=== PATIENT | male | born 1950 | race Caucasian/White ===

== ENCOUNTER 2017-06-03 08:06 | Inpatient (IN) ==
[~2017-06-03 08:06] MED LIST: *HR* Etomidate 20 MG/10 ML AMPUL IVP ONE; *HR* FentaNYL (PF) 100 MCG/2 ML VIAL ONE; *HR* LORazepam 2 MG/ML VIAL IVP ONE; *HR* Midazolam HCl 2 MG/2 ML VIAL ONE; *HR* Propofol 200 MG/20 ML VIAL IVP ONE; *HR* Remifentanil 2 MG VIAL IVP ONE; *HR* Rocuronium Bromide 50 MG/5 ML VIAL ONE; *HR* Succinylcholine 200 MG/10 ML VIAL IVP ONE; Lidocaine -MPF 2% 2 ML VIAL ONE
[2017-06-03] MEDS ORDERED: *HR* Etomidate 40 MG/20 ML VIAL IVP ONE (08:14)
[2017-06-03] MEDS ORDERED: Lidocaine -MPF 4% 5 ML AMPUL ONE (08:16)
[2017-06-03] MEDS ORDERED: *HR* Succinylcholine 200 MG/10 ML VIAL IVP ONE (08:16)
[2017-06-03] MEDS ORDERED: Nitroglycerin 0 MG/0 ML INFUS..BTL IVC ONE (08:26)
[2017-06-03] MEDS ORDERED: Heparin 1,000 UNITS/500 mL NS 1,500 ML ONE (08:33)
[2017-06-03] MEDS ORDERED: Lidocaine -MPF 2% 2 ML VIAL ONE ×2 (08:33→08:56)
[2017-06-03] MEDS ORDERED: *HR* Phenylephrine 10 MG/ML VIAL ONE ×2 (08:33→15:46)
[2017-06-03] MEDS ORDERED: Famotidine 20 MG/2 ML VIAL IVP ONE (08:36)
[2017-06-03] MEDS ORDERED: Acetaminophen IV 1,000 MG/100 ML INFUS..BTL IVPB ONE (08:36)
--- NOTE | 2017-06-03 08:40 | Anesthesia Evaluation PreOp ---
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 Other Medical History: Denies Any Significant HX Alcohol Use: none Drug use: none Medications and Allergies Aspirin [Ecotrin] 325 mg PO DAILY 05/30/17 [History] Isosorbide MONOnitrate (24 HR) [Imdur] 60 mg PO DAILY 05/30/17 [History] Lisinopril [Zestril] 20 mg PO DAILY 05/30/17 [History] Nitroglycerin 0.4 mg SL Q5MIN 05/30/17 [History] Pravastatin Sodium [Pravachol] 80 mg PO DAILY 05/30/17 [History] Propranolol LA (24 HR) [Inderal LA] 80 mg PO DAILY 05/30/17 [History] 3 Allergy/AdvReac Type Severity Reaction Status Date / Time No Known Allergies Allergy Unverified 05/15/17 10:51 - Meds/Allergy Pre-op Review Medications Reviewed: Yes Allergies Reviewed: Yes Beta Blockers on Current Med List: Yes Anesthesia Results - Labs Laboratory Tests 05/29/17 05/29/17 05/29/17 07:27 07:27 07:27 Hgb 14.1 Hct 42.6 Plt Count 223 PT INR APTT 28.6 Sodium 139 Potassium 4.3 BUN 18 Creatinine 1.20 05/30/17 06:48 Hgb Hct Plt Count PT 11.7 INR 1.1 APTT Sodium Potassium BUN Creatinine - Imaging EKG: report reviewed (SR) Additional studies: EF 38%, non diagnostic stress test Anesthesia Exam O2 Sat Height 1.85 m Height 1.85 m Weight 68.039 kg Weight 68.039 kg O2 Sat by Pulse Oximetry 99 Vital Signs Temp Pulse Resp BP Pulse Ox 97.8 F 78 18 124/85 99 06/03/17 08:22 06/03/17 08:22 06/03/17 08:22 06/03/17 08:22 06/03/17 08:22 Height: 6'1 Weight: 150 lbs NPO (# of Hours): MN Pain Scale: 0 - HEENT Pupil (Motor): Pupils equal, EOMI Mallampati: III Teeth: Edentulous Oral Opening: Less than or equal to 3 - 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
[2017-06-03] MEDS ORDERED: Lidocaine -MPF 1% 2 ML VIAL ID ONE (08:41)
[2017-06-03] MEDS ORDERED: Albuterol 2.5 MG/3 ML NEBULIZER IH ONE (08:41)
[2017-06-03] MEDS ORDERED: CeFAZolin Syr 2,000MG/20 ML 2,000 MG/20 ML SYRINGE IVPB ONE (08:41)
[2017-06-03] MEDS ORDERED: Heparin 1,000 UNITS/500 mL NS 500 ML ONE (08:42)
[2017-06-03] MEDS ORDERED: Protamine Sulfate 50 MG/5 ML VIAL IVP ONE (08:43)
--- NOTE | 2017-06-03 08:47 | History & Physical Report ---
Date of Encounter: 06/03/17 Time of Encounter: 08:46 24 Hour HP Update - Instructions Instructions: If the History and Physical is less than 30 days old and was completed prior to A.M. admission and or procedure and has NOT been updated on calendar day of procedure please complete this update prior to performing procedure. - Update Patient reports changes in Medical Condition: No Changes in examination, assessment, or condition: No Changes in Medication: No Preop tests/diagnostics Reviewed: Yes Surgery Remains Indicated: Yes Consent for Planned Operative Procedure(s) Verified: Yes - Pre-Operative Checklist Preoperative Checklist Indicated: Yes Prophylactic Antibiotic Ordered: Yes Home Medications Include Beta Fariba: Yes Beta Fariba Taken Today (Day of Surgery): Yes Beta Fariba Taken Yesterday (Day Prior to Surgery): Yes Is VTE Prophylaxis Indicated?: Yes
[2017-06-03] MEDS: Ringers Solution, Lactated 1,000 ML IVC SCH ×5 (09:19→14:41)
[2017-06-03] MEDS ORDERED: EPHEDrine 50 MG/ML VIAL ONE (11:03)
[2017-06-03] MEDS ORDERED: *HR* FentaNYL (PF) 100 MCG/2 ML VIAL ONE (11:14)
[2017-06-03] MEDS ORDERED: Dexamethasone 4 MG/ML VIAL ONE (11:40)
[2017-06-03 11:59] LABS: ABG Base Excess -2 mEq/L (-2 to 3); ABG Chloride 105 mEq/L (98-107); ABG Glucose 105 mg/dL (60-95); ABG HCO3 25 mEq/L (21-27); ABG Ionized Calcium 1.19 mmol/L (1.15-1.35); ABG Oxygen Saturation 100 % (95-98); ABG PCO2 49 mmHg (35-45); ABG PH 7.32 pH Units (7.32-7.45); ABG PO2 265 mmHg (85-104); ABG TCO2 27 mEq/L (20-26)
[2017-06-03] MEDS ORDERED: Mannitol 25% vial 12.5 GM/50 ML VIAL ONE (13:02)
[2017-06-03] MEDS ORDERED: *HR* Heparin 5,000 UNIT/ML VIAL ONE (13:03)
[2017-06-03 13:59] LABS: ABG Base Excess -6 mEq/L (-2 to 3); ABG Chloride 105 mEq/L (98-107); ABG Glucose 120 mg/dL (60-95); ABG HCO3 20 mEq/L (21-27); ABG Ionized Calcium 1.16 mmol/L (1.15-1.35); ABG Oxygen Saturation 100 % (95-98); ABG PCO2 41 mmHg (35-45); ABG PO2 199 mmHg (85-104); ABG TCO2 22 mEq/L (20-26)
[2017-06-03] MEDS ORDERED: *HR* Promethazine 25 MG/ML VIAL IVP PRN (14:07)
[2017-06-03] MEDS ORDERED: *HR* HYDROmorphone (PF) 1 MG/ML SYRINGE IVP PRN (14:07)
[2017-06-03] MEDS ORDERED: Ondansetron 4 MG/2 ML VIAL IVP ONE (14:07)
[2017-06-03] MEDS ORDERED: *HR* Remifentanil 2 MG VIAL IVP ONE (14:49)
[2017-06-03] MEDS ORDERED: Ondansetron 4 MG/2 ML VIAL ONE (15:26)
--- NOTE | 2017-06-03 16:33 | Operative Note ---
Date of procedure: 06/03/17 Pre-op diagnosis: AAA and Bilateral Iliac Aneurysms Post-op diagnosis: same Procedure: Aneurysm repair with 22 x 11 mm Aorto-Bi Iliac Bypass graft with Hemashield Graft Complications: none Anesthesia: GETA Surgeon: Javan Marks Estimated blood loss (cc): 1,000 Specimen: none Condition: stable Disposition: ICU Procedure in Detail: History Marcos Richter is a 66-year-old white male who was referred from Dr. Chavez with a finding of a pulsatile abdominal mass. Workup revealed a very large abdominal aortic aneurysm at 7.3 cm and a very large iliac artery aneurysm on the right side at 4.6 cm. The patient had no symptoms from these aneurysms. Workup proceeded in a patient was initially evaluated for an endovascular approach. Patient was found to have anatomy in the right pelvic area that would not permit a satisfactory access for the devices and so therefore the patient was deemed to be appropriate for open repair. He now comes for this procedure. Of note the patient has a history of previous myocardial infarctions. He has a diminished ejection fraction secondary to his previous infarcts. Procedure After informed consent was obtained the patient was taken to the operating room. General endotracheal anesthesia was established under arterial line pressure monitoring. A central line was also placed in the right subclavian vein. The abdomen and groin and upper thighs were sterilely prepped and draped. A timeout protocol was observed. A vertical midline incision was made on the abdomen dissection demonstrated a large aneurysm occupying a significant portion of the abdominal space and large pelvic aneurysms particularly on the right side. The viscera and the 4 quadrants of the abdomen were inspected. There was no obvious liver or spleen pathology. The patient does have diverticulosis of the sigmoid colon. There was no free fluid or blood in the abdominal cavity. The viscera was then reflected into the right upper quadrant. The retroperitoneal area was exposed. Dissection was then made into the retroperitoneum down to the medial border of the third portion of the duodenum. Dissection was carried down then onto the anterior surface of the large abdominal aortic aneurysm. Dissection was carried proximally so that the left renal vein was identified. This was thoroughly dissected on the anterior surface of the aneurysm. Due to the very short neck of the aneurysm the left renal vein needed to be divided in order to secure an appropriate position for the aortic clamp as well as to create the proximal anastomosis. The renal arteries were identified as well and they were encircled with vessel loops. The renal vein was divided with a double ligation proximally and distally and then divided over the midportion of the aorta. The suprarenal aorta was then dissected up to the level of the superior mesenteric artery. Control was obtained along the lateral and medial aspects of the aorta so that a clamp could be safely placed. Attention was then directed distally. Dissection was carried distally along the anterior surface of the aorta down onto the bilateral common iliac artery aneurysms. The aneurysms extended to the iliac bifurcation. After control was obtained of the distal iliac vessels 5000 units of heparin was administered intravenously. After a three-minute delay was observed the iliac arteries were clamped and then finally the supra renal aorta was crossclamped. An 11 blade knife and De [place] scissors were used to open the abdominal aorta. As expected a large amount of chronic thrombus was encountered. This was then removed. There were no backbleeding lumbars. There is no backbleeding from the inferior mesenteric artery. The aorta was then dissected and cut on the lateral and medial border in the immediate infrarenal location to fashion the neck for the proximal anastomosis. A 22 x 11 mm Hemashield bifurcated knitted graft was selected. The graft was anastomosed end-to-end with 3-0 Prolene suture. After protecting the renal arteries the proximal anastomosis was checked. Hemostasis was achieved. The aortic clamp was then moved to the graft itself and pulsatile flow was restored to the renal arteries bilaterally. This was confirmed with the use of intraoperative Doppler. Attention was then directed distally to the iliac bifurcation. Attention was directed first to the left lower extremity. The aneurysm was opened and all residual debris was removed. The internal and external iliac arteries were selectively controlled. The distal common iliac artery was then transected. The left limb of the graft was then tunneled through the aneurysmal area. An end-to- end anastomosis was then made at the left side using 4-0 Prolene suture. After appropriate backbleeding and flushing the graft was opened first into the internal iliac and then into the left external iliac. Pulsations and Doppler signals were confirmed in both vessels. ABELARDO stasis was achieved. The area was then packed with a dry lap and attention was directed to the right side. The aneurysm on the right common iliac artery was very extensive and made distal access and visualization difficult. The aneurysm was opened as far distally as possible from proximal to distal. A large amount of chronic clot and debris was removed from the vessel. Again on the right side and end and anastomosis was performed using 4-0 Prolene suture. After appropriate backbleeding and flushing the graft was removed and pulsatile flow was restored into the right lower extremity. Palpable pulses were identified in the external iliac artery. Hemostasis was achieved. The abdominal cavity was then irrigated with antibiotic containing solution. Hemostasis was achieved of the surrounding tissue. The NG tube which had been identified and placed earlier was rechecked. The wall of the aneurysm sac was then approximated around the synthetic graft using 2-0 Vicryl suture. The left external iliac artery anastomotic area had been created through the lateral gutter with division along the white line of Toldt. This area was irrigated again and then the area closed to avoid any potential internal hernias. Attention was then directed proximally. All mesenteric openings were reapproximated using 2-0 Vicryl. The retroperitoneal tissue was then reapproximated distally to proximally using 2-0 Vicryl. Again the wound was inspected for hemostasis. The bowel was then repositioned in its normal location. The bowel appeared normal in color and there is no signs of ischemia. The omentum was then laid anterior to the viscera and the fascia was closed using looped EDS suture. The skin edges were approximated using skin fritz. The patient tolerated the procedure well. There was no intraoperative hemodynamic distress. The patient was extubated in the operating room and taken to the recovery room. He will be transferred to the intensive care unit for further observation. The patient received approximately 1000 mL of blood via cell saver. No banked blood was administered intraoperatively.
[2017-06-03] MEDS ORDERED: Ketamine *HR* 500 MG/10 ML MDV ONE (16:47)
[2017-06-03] MEDS ORDERED: Nitroglycerin 1 INCH/GM PACKET TP SCH (17:17)
[2017-06-03] MEDS ORDERED: 0.9 % Sodium Chloride 1,000 ML IVC SCH (17:17)
[2017-06-03] MEDS ORDERED: Naloxone 0.4 MG/ML INJ IVP PRN (17:17)
[2017-06-03] MEDS ORDERED: Ondansetron 4 MG/2 ML VIAL IVP PRN (17:17)
[2017-06-03] MEDS ORDERED: *HR* Labetalol 20 MG/4 ML SYRINGE IVP PRN (17:17)
[2017-06-03] MEDS ORDERED: *HR* Morphine 2 MG/ML SYRINGE IVP PRN ×2 (17:17)
--- NOTE | 2017-06-03 17:19 | Pulmonology Consult Note ---
Date of Encounter: 06/03/17 Time of Encounter: 17:18 Assessment and Plan (1) S/P AAA repair Current Visit: Yes Status: Acute Patient is postop day #0 status post AAA repair for 7 cm infrarenal aortic aneurysm with extension into the iliac veins bilaterally. With biiliac bypass graft with Hemashield graft. Borderline hypotensive postoperatively which is likely effect of anesthesia and the extent of surgical intervention. Give judicious use of intravenous crystalloid given underlying cardio hemodynamics. Would opt for early use of vasopressor support with goal MAP around 65. Vascular surgery is following this patient for further postoperative management from a vascular standpoint he will need hourly neurovascular checks of his extremities currently his: Clammy with temperature lower side for which external heating source has been applied lactate is pending. He is also receiving prophylactic antimicrobials per surgical protocol. At high risk for renal complications given intraoperative clamping and metabolic panel is at this time pending we will continue to monitor his urine output closely. Clearly at risk for intra-abdominal hemorrhage also trend his H&H every 6 hours. Narcotics for pain control as needed patient has exhibited some evidence of mild agitation for which I have also ordered a Precedex infusion he has a history of alcoholism although based upon my review of the chart not sure if this is active or not we will monitor closely for withdrawal although probably too early to expect this now. (2) HFrEF (heart failure with reduced ejection fraction) Current Visit: Yes Status: Acute Borderline blood pressure which is likely a manifestation of postoperative anesthesia and intraoperative hemodynamics do not feel the patient's in cardiogenic shock at this time although I have added a lactate. I have also given Given small fluid challenge to hopefully improve filling pressures with improvement in cardiac output however he thinks early switch to vasopressors as outlined in previous paragraph is warranted. With Resolution of hypotension we can reinstitute beta omid therapy Qualifiers: Heart failure chronicity: chronic Qualified Code(s): I50.22 - Chronic systolic (congestive) heart failure (3) COPD (chronic obstructive pulmonary disease) Current Visit: Yes Status: Acute He does not appear to have acute exacerbation of COPD in fact he has excellent oxygenation on room air at this time. With use of narcotics for pain control and effects of anesthesia that he is at risk for respiratory depression certainly could have respiratory support with bilevel positive airway pressure on an as needed basis repeat ABG in 2 hours. Chest x-ray is reassuring as there is no evidence of cardio and pulmonary edema or infiltrate. Was more awake we will encourage incentive spirometry removal of the nasogastric tube as soon as possible out of bed to chair and early ambulation working closely with our surgical colleagues. Qualifiers: COPD type: emphysema Qualified Code(s): J43.9 - Emphysema, unspecified (4) CAD (coronary artery disease) Current Visit: Yes Status: Acute Restart beta omid and statin when taking by mouth. Qualifiers: Associated angina: without angina Qualified Code(s): I25.10 - Atherosclerotic heart disease of [place] coronary artery without angina pectoris (5) HTN (hypertension) Current Visit: Yes Status: Acute Hypotensive currently Qualifiers: Hypertension type: essential hypertension Qualified Code(s): I10 - Essential (primary) hypertension (6) PVD (peripheral vascular disease) Current Visit: Yes Status: Acute [facility] surgery following he is status post abdominal repair will need close monitoring of peripheral pulses (7) Tobacco abuse Current Visit: Yes Status: Acute We will provide the patient with tobacco abuse counseling once he is more awake hopefully can remain tobacco free at time of discharge History of Present Illness Consult date: 06/03/17 Requesting physician: Javan Marks Reason for consult: COPD Chief complaint: AAA repair History of present illness: This is a 66-year-old gentleman with a past medical history of COPD coronary artery disease heart failure with reduced ejection fraction and peripheral vascular disease who presented for elective open repair of a 7 cm infrarenal abdominal aortic aneurysm. He is postop day 0 status post this major operation and pulmonary was consulted for further evaluation and management of his postoperative respiratory status. His medical history and clinical course up to this time has been obtained from the medical record as patient is somewhat delirious after anesthesia. Encouragingly patient was successfully liberated in the PACU prior to transfer to intensive care unit for further monitoring. He was generally hemodynamically stable intraoperatively although it did require periodic infusion of Juan Diego-Synephrine postoperatively his blood pressure has been systolics in the 90s and heart rate in the high 50s low 60s. Oxygen saturation has been in the 90s with nasal cannula. PMHx: COPD, PAD, HFrEF, CAD, HTN, DL FamHx: CVA, HTN CAD, Social: + tobacco Abuse (1ppd x 60years) and EtOH Pre OP Testing Nuclear Sress: Evidence of Fix scar in LAD distribution. EF 30% Vascular Studies (Aortography): Aneurysm present with a diabetic Ethel 7 cm in the infrarenal abdominal aorta with extension into the right common and left common iliac arteries Arterial Studies: 1) Bilateral lower extremities waveform demonstrates normal hemodynamics. 2) bilateral Ankle Brachial Index is normal. 3) Overall Impression: Arterial hemodynamics are well maintained at rest. Labs Post Op: ABG 7.30/41/199 Past Med Surg Social Fam HX - Past Medical History Medical history: coronary artery disease, hyperlipidemia, hypertension, myocardial infarction Psychiatric history: no psych history - Past Surgical History Surgical History: other - Social History Smoking Status: Current every day smoker Packs per day: 4-5 cigs daily Smokeless Tobacco Status: No Alcohol use: none Drug use: none Medications and Allergies Aspirin [Ecotrin] 325 mg PO DAILY 05/30/17 [History] Isosorbide MONOnitrate (24 HR) [Imdur] 60 mg PO DAILY 05/30/17 [History] Lisinopril [Zestril] 20 mg PO DAILY 05/30/17 [History] Nitroglycerin 0.4 mg SL Q5MIN 05/30/17 [History] Pravastatin Sodium [Pravachol] 80 mg PO DAILY 05/30/17 [History] Propranolol LA (24 HR) [Inderal LA] 80 mg PO DAILY 05/30/17 [History] 3 Allergy/AdvReac Type Severity Reaction Status Date / Time No Known Allergies Allergy Verified 06/03/17 08:57 All Systems: A 10-system review of systems was performed and is negative for pertinent findings except as documented above in the HPI. Physical Examination General appearance: lethargic (with periods of agitation. he responds to my voice and is able to answer simple questions but not consistently ), other Eyes: nonicteric ENT: oropharynx moist Neck: supple Auscultation: bilateral: rhonchi (faint rhonchi b/l no overt wheezing ), other ( air entry b/l ) Cardiovascular: regular rate and rhythm (no obvious murmur ) Gastrointestinal: hypoactive bowel sounds, tender (midline inciscion is dressed and dry. ) Integumentary: other (patchy areas of mottling in b/l LE's. No rash ) Extremities: other (dopplerable r and l radial pulses; dopperable pulses to right popliteal and left PT. left foot cool comapred to right. ) Musculoskeletal: no deformities pupils equal and round (moves all exts spontaneously no gross motor deficit although he does not consistently move ext's to command. ) other (he appears uncomfortable and in moderate pain. ) Results - Laboratory Findings ABG ABG pH 7.30 pH Units (7.32-7.45) L 06/03/17 13:55 ABG pCO2 41 mmHg (35-45) 06/03/17 13:55 ABG pO2 199 mmHg (85-104) H D 06/03/17 13:55 ABG O2 Saturation 100 % (95-98) H 06/03/17 13:55 Abnormal lab findings: Abnormal lab results ABG pH 7.30 pH Units (7.32-7.45) L 06/03/17 13:55 ABG pO2 199 mmHg (85-104) H D 06/03/17 13:55 ABG HCO3 20 mEq/L (21-27) L 06/03/17 13:55 ABG O2 Saturation 100 % (95-98) H 06/03/17 13:55 ABG Base Excess -6 mEq/L (-2 to 3) L 06/03/17 13:55 ABG Hematocrit 31.0 % (37.5-50.1) L 06/03/17 13:55 Glucose 120 mg/dL (60-95) H 06/03/17 13:55 - Diagnostic Findings Chest x-ray: report reviewed, image reviewed - Clinical Findings Intake & Output: Intake & Output 06/03/17 06/03/17 06/03/17 07:59 15:59 23:59 Intake Total 3000 / 3000 Output Total 1400 / 1400 Balance 3000 / 3000 -1400 / -1400 Weight 68.039 kg Consult Discharge Plan - Plan Referrals: Melecio Chavez MD [Primary Care Provider] -
[2017-06-03] MEDS ORDERED: Albuterol 2.5 MG/3 ML NEBULIZER IH PRN (17:24)
[2017-06-03] MEDS ORDERED: 0.9 % Sodium Chloride 1,000 ML ONE (17:43)
[2017-06-03] MEDS ORDERED: Famotidine 20 MG/2 ML VIAL IVP SCH (18:00)
[2017-06-03] MEDS ORDERED: Dexmedetomidine HCl 400 MCG/100 ML MLS IVC SCH (18:00)
[2017-06-03 18:27] LABS: Basophils % 0.4 %; Nucleated Red Blood Cells 0.1 /100 WBC (0)
[2017-06-03 18:29] LABS: Basophils # 0.1 K/mcL (0.0-0.2); Eosinophils # 0.1 K/mcL (0.0-0.6); Eosinophils % 0.4 %; Hematocrit 46.1 % (37.5-50.1); Hemoglobin 15.1 g/dL (12.9-16.9); INR 1.4; Immature Granulocytes % 2.2 % (0-4); Lymphocytes # 2.9 K/mcL (0.6-4.6); Mean Corpuscular HGB Conc 32.8 g/dL (31.6-35.5); Mean Corpuscular Hemoglobin 31.6 pg (28.0-33.3); Mean Corpuscular Volume 96.4 fL (83.0-100.0); Mean Platelet Volume 11.3 fL (9.4-12.4); Monocytes # 0.7 K/mcL (0.0-1.3); Monocytes % 3.8 %; Prothrombin Time 14.7 Seconds (9.4-12.1); Red Blood Count 4.78 M/mcL (4.19-5.50); Segmented Neutrophils % 77.2 %
[2017-06-03 18:40] LABS: Neutrophils # 14.1 K/mcL (1.6-8.9); Platelet Count 86 K/mcL (140-400)
[2017-06-03] MEDS ORDERED: Ringers Solution, Lactated 500 ML IVC ONE (18:53)
[2017-06-03] MEDS ORDERED: Norepinephrine 4 MG in D5% in Water 250 ML IVC SCH (20:30)
[2017-06-03] MEDS: Ipratropium/Albuterol Neb 3 ML IH SCH ×2 (20:40→23:27)
[2017-06-03 20:53] LABS: ABG Base Excess -17 mEq/L (-2 to 3); ABG HCO3 10 mEq/L (21-27); ABG Oxygen Saturation 92 % (95-98); ABG PCO2 26 mmHg (35-45); ABG PH 7.19 pH Units (7.32-7.45); ABG PO2 78 mmHg (85-104); ABG TCO2 11 mEq/L (20-26)
[2017-06-03 20:58] LABS: Mean Corpuscular HGB Conc 32.2 g/dL (31.6-35.5); Nucleated Red Blood Cells 0.1 /100 WBC (0); Segmented Neutrophils % 79.2 %
[2017-06-03 21:00] LABS: Basophils # 0.1 K/mcL (0.0-0.2); Basophils % 0.5 %; Eosinophils % 0.2 %; Hematocrit 44.4 % (37.5-50.1); Hemoglobin 14.3 g/dL (12.9-16.9); Immature Granulocytes % 4.3 % (0-4); Immature Platelets 8.9 % (1.1-6.1); Lymphocytes # 2.4 K/mcL (0.6-4.6); Lymphocytes % 12.3 %; Mean Corpuscular Hemoglobin 31.4 pg (28.0-33.3); Mean Corpuscular Volume 97.6 fL (83.0-100.0); Mean Platelet Volume 10.8 fL (9.4-12.4); Monocytes # 0.7 K/mcL (0.0-1.3); Monocytes % 3.5 %; Red Blood Count 4.55 M/mcL (4.19-5.50)
[2017-06-03 21:02] LABS: Neutrophils # 15.7 K/mcL (1.6-8.9); Platelet Count 73 K/mcL (140-400)
[2017-06-03 21:12] LABS: Albumin/Globulin Ratio 0.8 (1.1-2.2); Bilirubin,Total 1.1 mg/dL (0.2-1.2); Calcium 7.1 mg/dL (8.6-10.8); Globulin 2.2 g/dL (2.4-3.5)
[2017-06-03 21:16] LABS: Albumin 1.8 g/dL (3.5-5.0); Potassium 6.6 mEq/L (3.5-4.5)
[2017-06-03] MEDS ORDERED: Insulin Human Regular 10 UNIT in 0.9 % Sodium Chloride 10 ML IV ONE (22:07)
[2017-06-03] MEDS ORDERED: Calcium Gluconate 2,000 MG in D5% in Water 100 ML IVPB ONE (22:07)
[2017-06-03] MEDS ORDERED: *HR* Dextrose 50 % in Water (Syg) 50 ML SYRINGE IVP ONE (22:08)
[2017-06-03 23:35] LABS: ABG Base Excess -19 mEq/L (-2 to 3); ABG HCO3 8 mEq/L (21-27); ABG Oxygen Saturation 92 % (95-98); ABG PCO2 24 mmHg (35-45); ABG PH 7.16 pH Units (7.32-7.45); ABG PO2 78 mmHg (85-104); ABG TCO2 9 mEq/L (20-26)
[2017-06-03 23:39] LABS: Hematocrit 41.8 % (37.5-50.1); Hemoglobin 13.3 g/dL (12.9-16.9); Immature Platelets 10.7 % (1.1-6.1); Mean Corpuscular HGB Conc 31.8 g/dL (31.6-35.5); Mean Corpuscular Hemoglobin 32.1 pg (28.0-33.3); Mean Platelet Volume 11.1 fL (9.4-12.4); Red Blood Count 4.14 M/mcL (4.19-5.50)
[2017-06-03 23:44] LABS: Platelet Count 64 K/mcL (140-400)
[2017-06-04] LABS: Lymphocytes # 1.7 K/mcL (0.6-4.6); Monocytes # 0.7 K/mcL (0.0-1.3); Platelet Estimate Decreased (Normal); Toxic Granulation Present (Not Present)
[2017-06-04] MEDS ORDERED: CeFAZolin Premix DUPLEX 2,000 MG/50 ML BAG IVPB SCH
[2017-06-04] MEDS ORDERED: Sodium Bicarbonate 150 MEQ in D5% in Water 1,000 ML IVC SCH (01:00)
[2017-06-04] MEDS ORDERED: FentaNYL (PF) 1,000 MCG in 0.9 % Sodium Chloride 80 ML IVC SCH (01:00)
[2017-06-04 01:15] LABS: VBG Ionized Calcium 1.15 mmol/L (1.15-1.35)
--- NOTE | 2017-06-04 01:17 | Event Note ---
Date of Encounter: 06/04/17 Time of Encounter: 01:11
--- NOTE | 2017-06-04 01:20 | Procedure Note ---
Date of procedure: 06/04/17 Pre-op diagnosis: Respiratory failure Procedure: Endotracheal Intubation Date: 06/04/2017 Time: 1:10am Indication: Respiratory Failure Resident: Delilah James Attending: Dr. Lewis A time-out was completed verifying correct patient, procedure, site, positioning , and special equipment if applicable. The patient was placed in a flat position. Sedation was obtained using Versed 2mg, and additionally with Etomidate 20mg. The patient was easily ventilated using an ambu bag. The MAC 4 BLADE was used and inserted into the oropharynx at which time there was a Grade 1 view of the vocal cords. A 7.5-kittitian endotracheal tube was inserted and visualized going through the vocal cords. The stylette was removed. Colorimetric change was visualized on the CO2 meter. Breath sounds were heard in both lung martini equally. The endotracheal tube was placed at 23 cm, measured at the teeth. The Attending was present for the entire procedure. A chest x-ray was ordered to assess for pneumothorax and verify endotrachealtube placement. An ABG was ordered for 1 hour later to assess for improvement of pH. Estimated Blood Loss: 0ml The patient tolerated the procedure well and there were no complications. Anesthesia: MAC, IV sedation Surgeon: Delilah James Estimated blood loss (cc): 0 Condition: critical Disposition: ICU
[2017-06-04] MEDS ORDERED: 0.9 % Sodium Chloride 500 ML ONE ×2 (01:25→03:24)
[2017-06-04 03:25] LABS: ABG Base Excess -18 mEq/L (-2 to 3); ABG HCO3 11 mEq/L (21-27); ABG Oxygen Saturation 96 % (95-98); ABG PCO2 37 mmHg (35-45); ABG PH 7.08 pH Units (7.32-7.45); ABG PO2 112 mmHg (85-104); ABG TCO2 12 mEq/L (20-26); Blood Gas Modality PRVC; Blood Gas PEEP 5 cm H2O; Blood Gas Respiration Rate 18; Blood Gas VT 450 cc
--- NOTE | 2017-06-04 03:40 | Nephrology Consult Note ---
Date of Encounter: 06/04/17 Time of Encounter: 03:38 Assessment and Plan (1) LUTHER (acute kidney injury) Current Visit: Yes Status: Acute Unfortunately this critically ill gentleman is so hypotensive and unstable that even starting CRRT would most likely worsen his hemodynamics. He has emergent dialysis indications, so I saw him in the middle of the night, but d/t the rapidly declining BP, that he most assuredly would not tolerate even Benita for clearance. I asked the INDUSTRIAL THERAPIST to please keep me updated and I will remain in the hospital all night if his BPs trend even slightly better, at which point I would then place a temporary HD catheter and would start CRRT for clearance of the hyperkalemia. There is concern for an intra-abd bleed: see HPI. Meanwhile, I recommend continuing the Bicarb gtt to help with both the metabolic acidosis and hyperkalemia. I suspect he this critically ill gentleman with very complex and extremely severe illness has a poor prognosis.pent about 45 min in CCT including 20 min of chart review, 10min in documentation and 15 min in interview/examination plus discussions with the INDUSTRIAL THERAPIST and communication with the on-call Hospitalist , combined since initially being paged regarding this emergent nephrology consultation. As always with LUTHER, be sure to dose renally cleared Rx by GFR, avoid nephrotoxins such as NSAIDs and IV contrast if able. Thank you for consulting the [facility]. Will continue to closely follow with you. (2) Hyperkalemia Current Visit: Yes Status: Acute See above (3) Metabolic acidosis Current Visit: Yes Status: Acute See above (4) Anuria Current Visit: Yes Status: Acute See above (5) Hypotension Current Visit: Yes Status: Acute See above Qualifiers: Hypotension type: unspecified hypotension type Qualified Code(s): I95.9 - Hypotension, unspecified History of Present Illness - Reason for Consult Consult date: 06/04/17 Acute Kidney Injury, hyperkalemia, metabolic acidosis Requesting physician: Reece Mims - Chief Complaint Recurrent Hyperkalemia; LUTHER; Anuria - History of Present Illness Marcos Richter is a critically ill 66 year old male with a pmh of HTN, tobacco use, CAD with prior MIs and et al who presented for AAA repair. Post-op he was placed in the ICU and actually was extubated at about 5pm. All information is from the ICU team and review of progress notes/labs/med lists/ vitals/imaging since the pt was reintubated in the middle of the night. He was noted to steadily decline without UOP (i.e., anuria), worsening acidosis and severe hyperkalemia. He was placed on a Bicarb gtt and given temporizing medical treatments for hyperkalemia. However, his serum K+ remains elevated from 6.4 to 5.9. Nephrology was consulted for emergent COMMUNITY RESOURCE OFFICER assessment. I personally saw and examined the patient in the middle of the night. Before I left my home, I logged into [employer] and reviewed his chart: no prior Nephrologists notes seen in [employer] or even in historical versions of [employer] from years past. I also called the INDUSTRIAL THERAPIST and requested that a dialysis catheter kit, Benita equipment and etc be prepared; plus to notify his primary contact: his mother (who has not yet arrived to the hospital). Upon my arrival, he has steadily become severely hypotensive with mottling, and a second pressor was added. His abd is now firm. The hospitalist on-call plus the INDUSTRIAL THERAPIST mentioned that on-call Vascular surgery was en route d/t concern for possible intra-abdominal bleeding (which would make sense given the pt's hyperkalemia). I see that he was not reported to be taking PRN OTC NSAIDs according to his home med list, other than full dose ASA 325mg presumably for his known PVD. There was not a listing of ESRD in the family history. His PCP is Dr. Chavez, so I reviewed eCW: pt was seen for a yearly check up recently and noted to have a palpable abd mass, which led to the CT abd with IV contrast and findings of a AAA. His eGFR was actually consistent with CKD stage III in Apr 15, but labs prior to were from about 3 yrs ago with a SCr of about 1mg/dL and eGFR of >60; so not clear if he truly had CKD stage III. Past Med Surg Social Fam HX - Past Medical History Medical history: coronary artery disease, hyperlipidemia, hypertension, myocardial infarction Psychiatric history: no psych history - Past Surgical History Surgical History: other (AAA) - Social History Smoking Status: Current every day smoker Packs per day: 4-5 cigs daily Smokeless Tobacco Status: No Alcohol use: none Drug use: none - Additional Family History Additional family history: unclear if any ESRD or CKD. Pt is intubated during my Renal Consultation. Medications and Allergies Aspirin [Ecotrin] 325 mg PO DAILY 05/30/17 [History] Isosorbide MONOnitrate (24 HR) [Imdur] 60 mg PO DAILY 05/30/17 [History] Lisinopril [Zestril] 20 mg PO DAILY 05/30/17 [History] Nitroglycerin 0.4 mg SL Q5MIN 05/30/17 [History] Pravastatin Sodium [Pravachol] 80 mg PO DAILY 05/30/17 [History] Propranolol LA (24 HR) [Inderal LA] 80 mg PO DAILY 05/30/17 [History] 3 Allergy/AdvReac Type Severity Reaction Status Date / Time No Known Allergies Allergy Verified 06/03/17 08:57 Review of Systems ROS unobtainable: due to endotracheal tube Exam - Vital Signs Vital signs: Initial Vital Signs Temp Pulse Resp BP Pulse Ox 97.8 F 78 18 124/85 99 06/03/17 08:22 06/03/17 08:22 06/03/17 08:22 06/03/17 08:22 06/03/17 08:22 Vital Signs - Last 8 Hours Temp Pulse Resp BP Pulse Ox 06/04/17 02:00 68 28 81/46 98 06/04/17 01:04 28 96/74 92 06/04/17 01:00 70 26 79/55 96 06/04/17 00:00 71 18 88/47 92 06/03/17 23:27 18 98/48 92 06/03/17 23:00 97.3 F L 66 26 98/48 92 06/03/17 22:00 66 22 92/80 92 06/03/17 21:00 97.3 F L 67 20 90/75 93 06/03/17 20:40 20 93/60 93 06/03/17 20:00 68 20 93/60 93 Intake and Output 06/03/17 06/03/17 06/04/17 15:59 23:59 07:59 Intake Total 3000 / 3000 1485.1 / 1485.1 219 / 219 Output Total 1845 / 1845 Balance 3000 / 3000 -359.9 / -359.9 219 / 219 Intake: IV Fluids 3000 / 3000 1485.1 / 1485.1 219 / 219 HumuLIN R 10 UNIT In Normal 10.1 / 10.1 Saline Flush 10 ML @ 1212 mls/ hr IV ONCE ONE Rx#:[id number] 0.9 % Sodium Chloride 1,000 ML 620 / 620 @ 125 mls/hr IVC .Q8H [facility] Rx#: [id number] PRECEDEX Premix 400 mcg In 100 100 / 100 ml @ 0.2 MCG/KG/HR 3.402 mls/hr IVC .Q24H [facility] Rx#:[id number] Levophed 4 MG In Dextrose 5% 85 / 85 169 / 169 250 ML @ 5 MCG/MIN 19.05 mls/hr IVC CONT [facility] Rx#:[id number] Lactated Ringers 500 ML @ 1000 3000 / 3000 500 / 500 mls/hr IVC .Q30M ONE Rx#: [id number] Calcium Gluconate 2,000 MG In 120 / 120 Dextrose 5% 100 ML @ 220 mls/hr IVPB ONCE ONE Rx#:[id number] Ancef Premix DUPLEX 2,000 mg In 50 / 50 50 ml @ 100 mls/hr IVPB Q8HR [facility] Rx#:[id number] Magnesium Sulfate Premix 2gm/ 50 / 50 50mL 2 gm In 50 ml @ 48.077 mls /hr IVPB ONCE ONE Rx#: [id number] Blood Product 0 / 0 Rbcs Leuko Poor As-1 Unit 0 / 0 [id number] Output: Urine 45 / 45 Urethral (Springer) 45 / 45 Gastric Tube Lavage Amount 400 / 400 Right Nare 400 / 400 Estimated Blood Loss 1000 / 1000 Urine Amount (Catheter) 400 / 400 Other: Weight 68.039 kg Blood Glucose* 93 - General Appearance General appearance: chronically ill, sedated on ventilator, intubated EENT: PERRL Additional Comments: No scleral icterus b/l Neck: supple (RIJ CVC noted) Respiratory: clear Cardiology: no murmurs, no edema, regular rate, regular rhythm, normal S1, normal S2 Gastrointestinal: hypoactive bowel sounds, distended Integumentary: ecchymotic Additional Comments: mottling Neurologic: no asterixis, obtunded Additional Comments: limited by intubation/sedation. Musculoskeletal: cyanosis Additional Comments: cool toes and fingers with cyanosis Results - Lab Results 06/03/17 23:25 06/04/17 00:55 Most recent lab results ABG pH 7.08 pH Units (7.32-7.45) L* 06/04/17 03:21 ABG pCO2 37 mmHg (35-45) 06/04/17 03:21 ABG pO2 112 mmHg (85-104) H 06/04/17 03:21 ABG HCO3 11 mEq/L (21-27) L 06/04/17 03:21 ABG O2 Saturation 96 % (95-98) 06/04/17 03:21 Calcium 7.1 mg/dL (8.6-10.8) L 06/03/17 20:40 Magnesium 1.4 mg/dL (1.6-2.6) L 06/03/17 18:13 Consult Discharge Plan - Plan Referrals: Melecio Chavez MD [Primary Care Provider] -
[2017-06-04] MEDS: Ipratropium/Albuterol Neb 3 ML IH SCH (03:42)
--- NOTE | 2017-06-04 03:54 | Event Note ---
Date of Encounter: 06/04/17 Time of Encounter: 03:51 Patient was seen upon request of RN. Blood pressure is running low with low maps. Belly has become distended with ecchymosis and widespread area and a skin discoloration. Pulses thready in both radial and femoral arteries. Patient is on Levophed 50. Hemoglobin has not dropped much but this has happened in a very short period of time and wonders if hemoglobin is is still concentrated. Advise RN to inform surgery and Dr. Blue is coming to see the patient. Intrapelvic catheter reading is around 15. I will go ahead and transfuse 2 units and hold in reserve for units. Dopamine or vasopressin can be added if needed but this time she has improved. ABG obtained showed improved CO2 and oxygen but PTH is down and patient has been started on bicarbonate drip. PH is 7.08. Nephrology is already consulted. Suspect low pH secondary to metabolic acidosis/lactic acidosis. Patient condition grave
[2017-06-04 04:54] VITALS: BP 123/90
--- NOTE | 2017-06-04 04:59 | Event Note ---
<Delilah James - Last Filed: 06/04/17 04:47> Date of Encounter: 06/04/17 Time of Encounter: 04:00 The patient coded and we were alerted over the intercom. Nurses, physicians, respiratory therapy were all present. CPR was performed for 30minutes. Multiple doses of epinephrine and sodium bicarb were administered. 15 rounds of CPR were performed and then time of was called at 4:30am. The patient's family arrived just prior to time of . Pupils were fixed and dilated, no corneal reflex, no heart beat or breathe sounds. The family thanked the team for doing everything we could to save him. <Fei Nunes - Last Filed: 06/04/17 06:27> Date of Encounter: 06/04/17 I examined this patient and my medical decision-making was reviewed with the Resident Physician. I agree with the documented findings, disposition and treatment plan as described except to the extent set forth below.
[2017-06-04] MEDS ORDERED: Magnesium Sulfate 2 GM/100 ML PIGGYBACK IV ONE (06:04)
[2017-06-04] MEDS ORDERED: *HR* EPINEPHrine 1 MG/10 ML SYRINGE IVP ONE (06:04)
--- NOTE | 2017-06-04 06:32 | Death Note ---
Pronouncement Note - Date and Time of Date of : 06/04/17 Time of : 04:30 - PCOD Preliminary cause of : Respiratory arrest - Additional Data Confirmation of : no pulse, no respirations, no heart sounds, pupils fixed and dilated Family: at bedside Attending physician: Javan Marks MD Was code activated?: Yes Autopsy requested?: No Organ bank notified?: No Advance directives: No
--- NOTE | 2017-06-04 06:55 | Event Note ---
Date of Encounter: 06/04/17 Time of Encounter: 06:45 Patient clinical course deteriorated significantly leading to his demise. From 7pm to approx 1:30a I was in 1-2hours communication via telephone with the bedside RN. Course was complicated by severe anuric renal failure with metabolic acidosis and irreversible shock with lactic acidosis leading to Multi- organ system failure including ischemic hepatitis. Initial strategy focused on crystalloid volume expansion followed by vasopressor support. 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 Respiratory and acid base status was monitored frequently leading to my recommendation for reintubation by the covering Hospitalist. as course deteriorated. I also suggested frequent CBC trend to evaluate for hemorrhage and evaluation for possible abdominal compartment syndrome indirectly measured via transduced bladder pressure.
--- NOTE | 2017-06-05 18:18 | Electrocardiograph Report ---
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
== END 2017-06-04 06:05 | disposition expired | DRG 268 ==
LOC: SAMDAY 08:06 → ICNU 15:45
PROVIDERS: ADMIT Surgery Vascular Surgery; ATTEND Surgery Vascular Surgery